=== PATIENT | male | born 1990 | race Caucasian/White ===

== ENCOUNTER 2018-10-11 15:18 | Emergency (ER) | payer OTHER ==
[~2018-10-11] VITALS: Ht 177.8 cm; Wt 77.3 kg
[2018-10-11] MEDS ORDERED: fentaNYL 100 MCG/2 ML INJECTION (J3010) IV ONE (16:30)
--- NOTE | 2018-10-11 16:56 | REP ---
Clinical: Right shoulder pain. Technique: Internal rotation, external rotation, and Y view. Findings: Anterior dislocation to the humerus is appreciated. No obvious acute fracture. The glenoid appears intact. Acromioclavicular joint normal. Surrounding soft tissues grossly unremarkable. Impression: Anterior glenohumeral joint dislocation. Electronically Signed by Clive Tyler MD 10/11/2018 04:46 P
--- NOTE | 2018-10-11 16:57 | REP ---
CT Head without contrast HISTORY: Trauma COMPARISON: None There is no intraparenchymal hemorrhage, acute infarct, mass or midline shift. The ventricular system is normal in appearance. There is no extra cerebral collection. There is no fracture. The visualized sinuses are clear. Soft tissue swelling and subgaleal hematomas are present in the soft tissue overlying the posterior left temporal and parietal bones and right frontal bone. is present over the posterior left temporal and parietal bones. IMPRESSION: There is no intracranial lesion. Electronically Signed by Demetrio Negron MD 10/11/2018 04:47 P
[2018-10-11] MEDS ORDERED: NS 1,000 ML IV ONE (17:30)
[2018-10-11] MEDS ORDERED: PROPOFOL 200 MG/20 ML VIAL As Ordered ONE (17:42)
[2018-10-11] MEDS ORDERED: PROPOFOL 200 MG/20 ML VIAL IV PRN (17:45)
[2018-10-11] MEDS ORDERED: IBUP-1022 PO (18:41)
[2018-10-11 18:57] VITALS: BP 128/84
--- NOTE | 2018-10-11 19:35 | REP ---
Clinical: Status post reduction. Technique: Portable AP and Y views of the right shoulder. Findings: Satisfactory glenohumeral joint reduction is appreciated. The acromioclavicular joint is normal. No obvious acute fracture. Impression: Satisfactory glenohumeral joint reduction. Electronically Signed by Clive Tyler MD 10/11/2018 07:27 P
== END 2018-10-11 19:00 | disposition home or self-care (01) ==
LOC: M ED 15:18
DX: S43.014A Anterior dislocation of right humerus, initial encounter (principal); S00.03XA Contusion of scalp, initial encounter; S00.01XA Abrasion of scalp, initial encounter; S09.8XXA Other specified injuries of head, initial encounter; T74.11XA Adult physical abuse, confirmed, initial encounter; Y92.148 Other place in prison as the place of occurrence of the external cause; F17.200 Nicotine dependence, unspecified, uncomplicated
CPT/HCPCS: 23650; 70450; 73030; 93041; 99152; 99285; J3010